=== PATIENT | female | born 1980 | race Two or more races ===

== ENCOUNTER 2016-07-18 09:40 | Emergency (ER) | payer OTHER ==
[2016-07-18 09:44] VITALS: BP 147/97; PULSE 96; TEMP 98.6; BMI 28.1
[2016-07-18] MEDS ORDERED: CYCLOBENZAPRINE HCL 10 MG TABLET (FP) PO ONE (10:40)
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
[2016-07-18] MEDS ORDERED: KETOROLAC TROMETHAMINE 60 MG/2 ML VIAL IM ONE (10:41)
[2016-07-18] MEDS ORDERED: KETOROLAC TROMETHAMINE 60 MG/2 ML VIAL ONE (10:53)
[2016-07-18] MEDS ORDERED: CYCLOBENZAPRINE HCL 10 MG TABLET (FP) ONE (11:14)
== END 2016-07-18 11:43 | disposition home or self-care (01) ==
LOC: JERFT 09:40
PROC: 3E0233Z Introduction of Anti-inflammatory into Muscle, Percutaneous Approach (ICD-10-PCS; principal; 2016-07-18)
DX: S13.4XXA Sprain of ligaments of cervical spine, initial encounter (principal); V43.52XA Car driver injured in collision with other type car in traffic accident, initial encounter; Y92.414 Local residential or business street as the place of occurrence of the external cause; Y93.89 Activity, other specified; Y99.8 Other external cause status
CPT/HCPCS: 84703; 99281-25

== ENCOUNTER 2017-02-08 20:54 | Emergency (ER) | payer OTHER ==
[2017-02-08 21:03] VITALS: TEMP 98; BMI 30.4
--- NOTE | 2017-02-08 21:41 | PDOC ---
Attending Attestation - HPI HPI: 02/08/17 21:45 37 F with no PMHx, c/o sharp intermittent substernal chest pain for 3 days. She states she experienced an episode of more severe chest pain and difficulty breathing this morning, prompting her to come to the ED. Upon interview, she denies any symptoms currently. Pt denies any recent long travel, LE swelling, or history of blood clots. Pt denies TRAN and dizziness. Pt denies F/C, n/v/d. Pt denies dysuria, frequency, urgency and hematuria. <Miracle Campos - Last Filed: 02/08/17 21:45> - Resident Resident Name: KatherynSkip - ED Attending Attestation I have performed the following: I have examined & evaluated the patient, The case was reviewed & discussed with the resident, I agree w/resident's findings & plan, Exceptions are as noted - Physicial Exam PE: 02/08/17 23:16 Physical Exam General Appearance: Yes: Appropriately Dressed. No: Apparent Distress, Intoxicated HEENT: positive: EOMI, DANYELLE, Normal ENT Inspection, Normal Voice, TMs Normal, Pharynx Normal. negative: Pale Conjunctivae, Photophobia, Scleral Icterus (R), Scleral Icterus (L) Neck: positive: Trachea midline, Normal Thyroid, Supple. negative: Tender, Rigid, Carotid bruit, Stridor, Lymphadenopathy (R), Lymphadenopathy (L), Thyromegaly Respiratory/Chest: positive: Lungs Clear, Normal Breath Sounds. negative: Chest Tender, Respiratory Distress, Accessory Muscle Use, Labored Respiration, RES, Crackles, Rales, Rhonchi, Stridor, Wheezing, Dullness Cardiovascular: positive: Regular Rhythm, Regular Rate, S1, S2. negative: Edema , JVD, Murmur, Bradycardia, Tachycardia Vascular Pulses: Dorsalis-Pedis (R): 2+, Doralis-Pedis (L): 2+ Gastrointestinal/Abdominal: positive: Normal Bowel Sounds, Flat, Soft. negative : Tender, Organomegaly, Pulsatile Mass, Increased Bowel Sounds, Decreased BS, Distended, Guarding, Rebound, Hernia, Hepatomegaly, Spleenomegaly Lymphatic: negative: Adenopathy, Tenderness Musculoskeletal: positive: Normal Inspection. negative: CVA Tenderness, Decreased Range of Motion Extremity: positive: Normal Capillary Refill, Normal Inspection, Normal Range of Motion, Pelvis Stable. negative: Tender, Pedal Edema, Swelling, Erythema Integumentary: positive: Normal Color, Dry, Warm. 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 negative: EOM Palsy, Facial Droop, Sensory Deficit - Medical Decision Making 02/08/17 23:16 Pt treated and released. <Jason Mccollum - Last Filed: 02/08/17 23:16>
--- NOTE | 2017-02-08 21:58 | PDOC ---
History of Present Illness - General Chief Complaint: Chest Pain Stated Complaint: CHEST PAIN Time Seen by Provider: 02/08/17 21:17 - History of Present Illness Initial Comments: 02/08/17 21:52 The patient is a 37 year old female with no significant PMH who presents for evaluation of chest pain. The patient reports a 3 day history of intermittent sharp substernal chest pain. She noted that she had an episode earlier today that was more severe then usual prompting her presentation to the ED for evaluation. She currently denies any symptoms. She denies any recent long travel, leg swelling or OCP use. She denies a history of PE or DVT. She denies any SOB, headache, nausea, vomiting, abdominal pain, or changes with urination or bowel movements. Past History - Past Medical History Allergies/Adverse Reactions: Allergies Allergy/AdvReac Type Severity Reaction Status Date / Time No Known Allergies Allergy Verified 02/08/17 21:01 Home Medications: Ambulatory Orders NK [No Known Home Medication] 11/17/16 COPD: No Hypercholesterolemia: Yes (borderline) - Suicide/Smoking/Psychosocial Hx Smoking History: Never smoked Have you smoked in the past 12 months: No Hx Alcohol Use: No Drug/Substance Use Hx: No Substance Use Type: None Hx Substance Use Treatment: No Review of Systems - Review of Systems Comments:: 02/08/17 21:55 Constitutional: No fevers, chills, fatigue, malaise HEENT: No Rhinorrhea, nasal congestion, visual changes Cardiovascular: Chest pain. No syncope, palpitations, lightheadedness Respiratory: No Cough, SOB, Hemoptysis, Gastrointestinal: No Abdominal pain, Nausea, Vomiting, Constipation, Diarrhea, Melena Genitourinary: No Dysuria, Frequency, Urgency, Hesitancy, Hematuria, Flank pain Musculoskeletal: No Myalgia, arthralgia Skin: No rashes, bruising, pallor Neurologic: No Headache, Dizziness, Numbness, Weakness, or Tingling Psychiatric: No Hallucinations. No SI or HI *Physical Exam - Vital Signs Last Vital Signs Temp Pulse Resp BP Pulse Ox 98 F 76 18 135/93 100 02/08/17 21:01 02/08/17 21:01 02/08/17 21:01 02/08/17 21:01 02/08/17 21:01 - Physical Exam Comments: 02/08/17 21:56 General Appearance: Nourished. No Apparent Distress HEENT: EOMI, DANYELLE. No Pharyngeal Erythema, Tonsillar Exudate, Tonsillar Erythema Neck: No Cervical Lymphadenopathy Respiratory/Chest: Lungs Clear, Normal Breath Sounds. No Crackles, Rales, Rhonchi, Wheezing Cardiovascular: Regular Rhythm, Regular Rate. No Murmur, Gallops, Rubs Gastrointestinal/Abdominal: Normal Bowel Sounds, Soft. No Guarding, Rebound, Tenderness Musculoskeletal: No CVA Tenderness Extremity: Normal Capillary Refill Integumentary: Normal Color, Dry, Warm Neurologic: Fully Oriented, Alert, Normal Mood/Affect, Normal Response, ED Treatment Course - LABORATORY CBC & Chemistry Diagram: 02/08/17 21:58 02/08/17 21:58 Medical Decision Making - Medical Decision Making 02/08/17 21:56 The patient is a 37 year old female with no significant PMH who presents for evaluation of chest pain. Differential includes but is not limited to: Musculoskeletal, ACS, PE, infectious, metabolic derangement. Given the patient' s intermittent symptoms and normal physical exam, it is likely her symptoms are musculoskeletal in nature. She denies any risk factors for PE and it is unlikely her symptoms are due to a PE. We will obtain a cbc, cmp troponin, ekg and d-dimer to evaluate for other etiologies. We will continue to monitor and reassess the patient. 02/08/17 23:05 CBC, CMP, troponin, D-dimer are unremarkable. EKG is unremarkable. The patient 's symptoms are likely musculoskeletal in nature. We are comfortable with discharge at this time. We discussed the results and the plan with the patient who voiced understanding and is agreeable with the plan. *DC/Admit/Observation/Transfer Diagnosis at time of Disposition: Musculoskeletal chest pain - Discharge Dispostion Disposition: HOME Condition at time of disposition: Improved Admit: No - Referrals Referrals: Mariaelena Clemons MD [Primary Care Provider] - - Patient Instructions Printed Discharge Instructions: DI for Atypical Chest Pain Additional Instructions: Please return to the ER if you experience concerning or worsening symptoms including worsening chest pain, difficulty breathing, or fevers. You were seen in the ER for chest pain. Your lab results were normal. Your EKG was normal. It is likely your chest pain is musculoskeletal in nature and you may use ibuprofen or tylenol as needed to help manage your pain. Please call to schedule a follow up appointment with your primary care provider within 1 week to discuss your ER visit and further management of your symptoms. - Post Discharge Activity
[2017-02-08 22:08] LABS: BASO # 0.1 #; BASO % 0.7 % (0-2.0); EOS # 0.2 #; EOS % 2.3 % (0-4.5); LYMPH # 2.2; MCH 29.3 pg (25.7-33.7); MCHC 33.8 g/dl (32.0-36.0); MEAN CELL VOLUME 86.5 fl (80-96); MEAN PLT VOLUME 7.9 fl (7.5-11.1); MONO # 0.8 #; NEUT # 6.7 #; NEUT % 67.6 % (42.8-82.8); PLATELET COUNT 426 K/MM3 (134-434)
[2017-02-08 22:38] LABS: ALBUMIN 3.5 g/dl (3.4-5.0); ANION GAP 7 (8-16); BILIRUBIN,TOTAL 0.2 mg/dL (0.2-1.0); CALCIUM 8.3 mg/dL (8.5-10.1); CO2 26 mmol/L (21-32); CREATININE 0.7 mg/dL (0.55-1.02); GLUCOSE,RANDOM 87 mg/dL (74-106); SGOT/AST 16 U/L (15-37); SGPT/ALT 25 U/L (12-78); TOT PROT 7.6 g/dl (6.4-8.2)
[2017-02-08 22:40] LABS: ALK PHOS 76 U/L (45-117); CPK 76 IU/L (26-192); TROPONIN I < 0.02 ng/ml (0.00-0.05)
[2017-02-08 23:22] VITALS: BP 126/94; PULSE 90
--- NOTE | 2017-02-09 09:25 | EKG ---
Test Reason : Blood Pressure : / mmHG Vent. Rate : 083 BPM Atrial Rate : 083 BPM P-R Int : 136 ms QRS Dur : 082 ms QT Int : 364 ms P-R-T Axes : 052 031 031 degrees QTc Int : 427 ms NORMAL SINUS RHYTHM POSSIBLE LEFT ATRIAL ENLARGEMENT Confirmed by GERSON REYNA MD ([id number]) on 02/09/2017 9:24:52 AM Referred By: Confirmed By:GERSON REYNA MD
== END 2017-02-08 23:21 | disposition home or self-care (01) ==
LOC: JER 20:54
DX: R07.89 Other chest pain (principal)
CPT/HCPCS: 36415; 80053; 82550; 84484; 84703; 85025; 85379; 93005; 93010; 99283-25

== ENCOUNTER 2017-05-03 07:39 | Day surgery (SDC) | payer OTHER ==
[2017-05-01 15:41] VITALS: BMI 32.9
[2017-05-01 16:21] LABS: BASO % 0.3 % (0-2.0); HEMATOCRIT 36.7 % (32.4-45.2); HEMOGLOBIN 12.6 GM/dL (10.7-15.3); LYMPH % 14.2 % (8-40); MCH 29.6 pg (25.7-33.7); MCHC 34.2 g/dl (32.0-36.0); MEAN CELL VOLUME 86.7 fl (80-96); MEAN PLT VOLUME 8.1 fl (7.5-11.1); MONO % 6.9 % (3.8-10.2); NEUT % 77.6 % (42.8-82.8); PLATELET COUNT 429 K/MM3 (134-434); RBC 4.24 M/mm3 (3.60-5.2); RDW 12.9 % (11.6-15.6); WHITE BLOOD COUNT 9.3 K/mm3 (4.0-10.0)
[2017-05-01 16:45] LABS: ALBUMIN 3.9 g/dl (3.4-5.0); ANION GAP 10 (8-16); BILIRUBIN,TOTAL 0.4 mg/dL (0.2-1.0); BLOOD UREA NITROGEN 14 mg/dL (7-18); CALCIUM 8.6 mg/dL (8.5-10.1); CHLORIDE 101 mmol/L (98-107); CO2 26 mmol/L (21-32); CREATININE 0.7 mg/dL (0.55-1.02); GLUCOSE,RANDOM 80 mg/dL (74-106); POTASSIUM 4.8 mmol/L (3.5-5.1); SGOT/AST 14 U/L (15-37); SGPT/ALT 17 U/L (12-78); SODIUM 137 mmol/L (136-145)
[2017-05-01 16:46] LABS: ALK PHOS 82 U/L (45-117)
--- NOTE | 2017-05-02 18:42 | HP ---
History & Physical Update - History History: No Change - Physical Physical: No Change - Assessment Assessment: No Change - Plan Plan: No Change (No update to my HP from 05/01/17)
[2017-05-03] MEDS ORDERED: MIDAZOLAM HCL 2 MG/2 ML SINGLE DOSE VIAL ONE (07:54)
[2017-05-03] MEDS ORDERED: BACITRACIN 15 GM TUBE TOPICAL OINTMENT ONE (07:55)
[2017-05-03] MEDS ORDERED: DESFLURANE GAS 240 ML BOTTLE IH ONE (07:56)
[2017-05-03] MEDS ORDERED: PROPOFOL 20 ML ONE (08:15)
[2017-05-03] MEDS ORDERED: ROCURONIUM BROMIDE 50 MG/5 ML VIAL ONE (08:15)
[2017-05-03] MEDS ORDERED: DEXAMETHASONE SOD PHOSPHATE 4 MG/1 ML VIAL ONE (08:16)
[2017-05-03] MEDS ORDERED: LIDOCAINE HCL/PF 2% SDV 5ML VIAL ONE (08:16)
[2017-05-03] MEDS ORDERED: KETOROLAC TROMETHAMINE 30 MG/1 ML VIAL ONE (08:16)
[2017-05-03] MEDS ORDERED: fentaNYL CITRATE 250 MCG/5 ML VIAL ONE (08:16)
[2017-05-03] MEDS ORDERED: ceFAZolin SODIUM 1 GM VIAL IVPB ONE (08:25)
[2017-05-03] MEDS ORDERED: NEOSTIGMINE METHYLSULFATE 0.5 MG/ML - 10 ML MDV ONE (09:01)
[2017-05-03] MEDS ORDERED: GLYCOPYRROLATE 0.2 MG/1 ML VIAL ONE ×2 (09:01)
[2017-05-03] MEDS ORDERED: ONDANSETRON 4 MG/2 ML VIAL IVPUSH PRN (09:20)
[2017-05-03] MEDS ORDERED: PROMETHAZINE HCL 25 MG/1 ML VIAL IVPUSH PRN (09:20)
[2017-05-03] MEDS ORDERED: ACETAMINOPHEN 325 MG TABLET (FP) PO PRN (09:20)
[2017-05-03] MEDS ORDERED: oxyCODONE HCL 5 MG TABLET PO PRN (09:20)
[2017-05-03] MEDS ORDERED: LACTATED RINGERS SOLUTION 1,000 ML IV SCH ×2 (09:30)
--- NOTE | 2017-05-03 09:35 | OP ---
DATE OF OPERATION: 05/03/2017 PREOPERATIVE DIAGNOSES: 1. Retained intrauterine device. 2. Multiparity. 3. Voluntary sterilization. OPERATION: 1. Hysteroscopic intrauterine device removal. 2. Hysteroscopic lysis of adhesions. 3. Laparoscopic bilateral salpingectomy. 4. Suction dilatation and curettage. POSTOPERATIVE DIAGNOSES: 1. Retained intrauterine device. 2. Multiparity. 3. Voluntary sterilization. 4. Endometrial polyps. 5. Intrauterine adhesion. SURGEON: Mirlande Ruiz MD PHOTOENGRAVING PHOTOGRAPHER: LAURA Dacosta ANESTHESIA: General. ANESTHESIOLOGIST: Chris Buckner MD PROCEDURE: Patient was taken to the operating room, placed in the dorsal lithotomy position, prepped and draped in the usual sterile fashion. A timeout was performed in accordance with hospital regulation. Attention was then drawn to the umbilicus where a 5-mm umbilical incision was made. Veress needle was inserted into the cavity. Approximately 3 full liters of CO2 was insufflated in the cavity. Veress needle was removed and a 5-mm trocar was inserted, and laparoscope and camera were attached. Visualization revealed normal tubes and ovaries, and 2 lower abdomen trocars were placed after a 5-mm incision was made. Trocars were inserted under direct visualization. Grasper was then used to grasp the tube on the left. The LigaSure was then used to coagulate and cut the tube away from the uterus. Same procedure was then repeated on the right side. Ovaries were noted to be normal. Hemostasis was achieved. After hemostasis was achieved, all instruments were removed. CO2 was removed from the abdomen. Incisions were then closed with 4-0 Biosyn suture. Attention was then drawn to the vagina, where a speculum was placed in the vagina. Anterior lip of the cervix was grasped with a single-tooth tenaculum. Hysteroscope was then inserted and hysteroscopic removal of IUD was done. Endometrial band was seen going from the anterior aspect of the uterus to the posterior aspect of the uterus. Lysis of adhesions was then performed. Noted were endometrial polyps, and suction D&C was then performed. Hemostasis was achieved. All instruments were then removed. Patient tolerated the procedure well. ESTIMATED BLOOD LOSS: 20 mL. Arslan EVANS/[id number] [facility]
--- NOTE | 2017-05-03 09:47 | OP ---
Operative Note - Note: Operative Date: 05/03/17 Operation: Laparoscopic bilateral salpingectomy. hysteroscopic iud removal. hysteroscopic lysis of adhesions. Suction DC Findings: Adhesion band of uterus seen endometrial polyps Post-Operative Diagnosis: Same as Pre-op Surgeon: Mirlande Ruiz Ground Instructor Advanced: Olesya Lim Anesthesia: General Estimated Blood Loss (mls): 20 Operative Report Dictated: Yes
--- NOTE | 2017-05-03 09:50 | SURG ---
Surgery Cross Cut Saw Operator Note Cross Cut Saw Operator: Olesya Lim PA-C Date of Service: 05/03/17 Diagnosis: elective sterilization and removal of IUD Procedure: Laparoscopic bilateral salpingectomy. hysteroscopic iud removal. hysteroscopic lysis of adhesions. Suction DC I was present for the entirety of the operative procedure. For further detail, please refer to operative report. Visit type - Case Type Case Type: Scheduled Admission - Emergency Emergency Visit: No - New patient This patient is new to me today: Yes Date on this admission: 05/03/17
[2017-05-03 11:59] VITALS: BP 133/86; PULSE 89; TEMP 98.8
--- NOTE | 2017-05-04 13:52 | PATH ---
Surgical Pathology Report Patient Name: SARAH NICE [facility]. Rec. #: [id number] /Age/Gender: 1980 (Age: 37) / F Account: [id number] Location: [facility] SURGICAL Taken: 05/03/2017 Received: 05/03/2017 Reported: 05/04/2017 Physicians: Mirlande Ruiz M.D. Specimen(s) Received A: LEFT FALLOPIAN TUBE B: RIGHT FALLOPIAN TUBE C: REMOVED IUD D: UTERINE CONTENTS Clinical History Voluntary sterilization Final Diagnosis A. LEFT FALLOPIAN TUBE, SALPINGECTOMY: FULL LUMINAL PORTION OF UNREMARKABLE FALLOPIAN TUBE, INCLUDING FIMBRIATED END. B. RIGHT FALLOPIAN TUBE, SALPINGECTOMY: FULL LUMINAL PORTION OF UNREMARKABLE FALLOPIAN TUBE, INCLUDING FIMBRIATED END. C. CREDIT CARD ASSOCIATE, UTERUS, REMOVAL: IUD (GROSS ONLY). D. ENDOMETRIUM, CURETTING: ENDOMETRIUM WITH AREAS OF GLANDULAR ATROPHY AND STROMAL DECIDUALIZATION SUGGESTIVE OF PROGESTERONE EFFECT, WITH FOCAL AREAS SUGGESTIVE OF BENIGN ENDOMETRIAL POLYP. Comment: Recommend correlation with clinical findings and follow up as clinically indicated. Electronically Signed Edison Harper M.D. Gross Description A. Received in formalin labeled "left fallopian tube," is a 6.5 cm in length fimbriated fallopian tube. The outer surface is asencio-pink and smooth. Sectioning reveals an unremarkable lumen. Director Semiconductor sections are submitted in 2 cassettes as follows: 1-fimbria; 2-cross sections of fallopian tube. B. Received in formalin labeled "right fallopian tube," is a 6 cm in length fimbriated fallopian tube. The outer surface is asencio and smooth. Sectioning reveals an unremarkable lumen. Director Semiconductor sections are submitted in 2 cassettes as follows: 1-fimbria; 2-cross sections of fallopian tube. C. Received fresh labeled "removed IUD," is a 2.8 cm in length T-shaped device with an attached string, consistent with an IUD. No soft tissue is present. No sections are submitted, gross only. D. Received in formalin labeled "contents of uterus," is a 3.3 x 2.4 x 0.3 cm aggregate of asencio soft tissue fragments. The formalin is filtered and the specimen is entirely submitted in 2 cassettes. /05/03/2017 saudi05/03/2017
== END 2017-05-03 11:50 | disposition home or self-care (01) ==
LOC: JASU-SURG 07:39
PROVIDERS: ATTEND Obstetrics & Gynecology
PROC: 0UDB7ZZ Extraction of Endometrium, Via Natural or Artificial Opening (ICD-10-PCS; principal; 2017-05-03 08:00)
PROC: 0UT74ZZ Resection of Bilateral Fallopian Tubes, Percutaneous Endoscopic Approach (ICD-10-PCS; 2017-05-03 08:00)
PROC: 0UC98ZZ Extirpation of Matter from Uterus, Via Natural or Artificial Opening Endoscopic (ICD-10-PCS; 2017-05-03 08:00)
DX: Z30.2 Encounter for sterilization (principal); Z30.432 Encounter for removal of intrauterine contraceptive device; N85.6 Intrauterine synechiae
CPT/HCPCS: 36415; 80053; 84702; 85025; 86850; 86900; 86901; 88300-TC; 88302-TC; 88305-TC; 94760

== ENCOUNTER 2020-04-30 18:45 | Emergency (ER) | payer OTHER ==
[2020-04-30] MEDS ORDERED: KETOROLAC TROMETHAMINE 30 MG/1 ML VIAL IM ONE (19:20)
[2020-04-30] MEDS ORDERED: ONDANSETRON *ODT* 4 MG TABLET SL ONE (19:20)
[2020-04-30 19:21] VITALS: BP 123/65; PULSE 112; BMI 32.9
[2020-04-30] MEDS ORDERED: ONDANSETRON *ODT* 4 MG TABLET ONE (19:24)
[2020-04-30] MEDS ORDERED: KETOROLAC TROMETHAMINE 30 MG/1 ML VIAL ONE (19:24)
[2020-04-30] MEDS ORDERED: ACETAMINOPHEN 1000 MG/100 ML VIAL (NON FORMULARY) IVPB ONE (19:58)
[2020-04-30] MEDS ORDERED: SODIUM CHLORIDE 0.9% 500 ML INFUS.BAG IV ONE (19:58)
[2020-04-30] MEDS ORDERED: ACETAMINOPHEN INJECTION 100 ML IVPB ONE (20:06)
[2020-04-30 20:39] LABS: BASO % 0.5 % (0-2.0); EOS % 0.1 % (0-4.5); HEMATOCRIT 33.8 % (32.4-45.2); HEMOGLOBIN 11.2 GM/dL (10.7-15.3); LYMPH % 4.6 % (8-40); MCH 28.5 pg (25.7-33.7); MCHC 33.2 g/dl (32.0-36.0); MEAN CELL VOLUME 85.9 fl (80-96); MEAN PLT VOLUME 8.2 fl (7.5-11.1); MONO % 2.8 % (3.8-10.2); PLATELET COUNT 432 K/MM3 (134-434); RBC 3.93 M/mm3 (3.60-5.2); RDW 13.1 % (11.6-15.6); WHITE BLOOD COUNT 12.7 K/mm3 (4.0-10.0)
[2020-04-30 21:01] LABS: CHLORIDE 103 mmol/L (98-107); POTASSIUM 3.6 mmol/L (3.5-5.1); SODIUM 134 mmol/L (136-145)
[2020-04-30 21:03] LABS: ALBUMIN 3.4 g/dl (3.4-5.0); CALCIUM 8.4 mg/dL (8.5-10.1)
[2020-04-30 21:04] LABS: ANION GAP 5 MMOL/L (8-16); BLOOD UREA NITROGEN 5.6 mg/dL (7-18); CO2 26 mmol/L (21-32); GLUCOSE,RANDOM 96 mg/dL (74-106)
[2020-04-30 21:07] LABS: CREATININE 0.8 mg/dL (0.55-1.3); SGOT/AST 13 U/L (15-37); SGPT/ALT 22 U/L (13-61)
[2020-04-30 21:09] LABS: BILIRUBIN,TOTAL 0.5 mg/dL (0.2-1); TOT PROT 7.4 g/dl (6.4-8.2)
[2020-04-30 21:10] LABS: ALK PHOS 77 U/L (45-117)
[2020-04-30 22:06] LABS: PH,URINE 6.5 (5.0-8.0); URINE APPEARANCE CLEAR; URINE BILIRUBIN NEGATIVE (NEGATIVE); URINE COLOR YELLOW; URINE GLUCOSE (UA) NEGATIVE (NEGATIVE); URINE KETONE NEGATIVE (NEGATIVE); URINE LEUK ESTERASE NEGATIVE (NEGATIVE); URINE NITRITE NEGATIVE (NEGATIVE); URINE PROTEIN NEGATIVE (NEGATIVE); URINE UROBILINOGEN 0.2 mg/dL (0.2-1.0)
== END 2020-04-30 22:21 | disposition home or self-care (01) ==
LOC: JER 18:45
PROC: 3E0333Z Introduction of Anti-inflammatory into Peripheral Vein, Percutaneous Approach (ICD-10-PCS; principal; 2020-04-30)
PROC: 3E0233Z Introduction of Anti-inflammatory into Muscle, Percutaneous Approach (ICD-10-PCS; 2020-04-30)
DX: R50.9 Fever, unspecified (principal); R52 Pain, unspecified; R11.0 Nausea; Z11.52 Encounter for screening for COVID-19
CPT/HCPCS: 36415; 71046-TC-FY; 80053; 81003; 82550; 84484; 85025; 87086; 93005; 93010; 99285-25; C9803; J0131; Q0162; U0003

== ENCOUNTER 2023-10-04 12:41 | Emergency (ER) | payer OTHER ==
[2023-10-04 13:08] VITALS: TEMP 98.1; BMI 34.4
[2023-10-04] MEDS ORDERED: ACETAMINOPHEN INJECTION 100 ML IVPB ONE (13:31)
[2023-10-04] MEDS ORDERED: METOCLOPRAMIDE HCL INJECTION 10 MG/2 ML VIAL ONE (13:31)
[2023-10-04] MEDS: SODIUM CHLORIDE 0.9% 500 ML INFUS.BAG IV ONE (13:43)
[2023-10-04] MEDS: METOCLOPRAMIDE HCL INJECTION 10 MG/2 ML VIAL IVPB ONE (13:44)
[2023-10-04] MEDS: ACETAMINOPHEN 1000 MG/100 ML BAG IVPB ONE (13:44)
[2023-10-04] MEDS ORDERED: KETOROLAC TROMETHAMINE 15 MG/ML VIAL ONE (14:40)
[2023-10-04 14:48] VITALS: BP 128/87; PULSE 62; RESP 16
[2023-10-04] MEDS: KETOROLAC TROMETHAMINE 15 MG/ML VIAL IVPUSH ONE (14:48)
== END 2023-10-04 15:35 | disposition home or self-care (01) ==
LOC: JER 12:41
PROC: 3E033GC Introduction of Other Therapeutic Substance into Peripheral Vein, Percutaneous Approach (ICD-10-PCS; principal; 2023-10-04)
PROC: 3E033NZ Introduction of Analgesics, Hypnotics, Sedatives into Peripheral Vein, Percutaneous Approach (ICD-10-PCS; 2023-10-04)
PROC: 3E0333Z Introduction of Anti-inflammatory into Peripheral Vein, Percutaneous Approach (ICD-10-PCS; 2023-10-04)
DX: R51.9 Headache, unspecified (principal); R42 Dizziness and giddiness; R11.0 Nausea
CPT/HCPCS: 70450-TC; 99284-25; J0131